=== PATIENT | female | born 1985 | race Caucasian/White ===

== ENCOUNTER 2016-11-20 11:24 | Emergency (ER) | payer OTHER ==
[2016-11-20 11:29] VITALS: TEMP 98.4; BMI 27.4
--- NOTE | 2016-11-20 11:52 | PDOC ---
History of Present Illness - General History Source: Patient, Old Records Exam Limitations: No Limitations <Yessenia Brito - Last Filed: 11/20/16 16:38> - General History Source: Patient Exam Limitations: No Limitations - History of Present Illness Initial Comments: 11/20/16 11:57 The patient is a 31-year-old woman with a significant past medical history of migraine headaches and post depression (gave approximately 17 months ago; LMP was on 10/28) who presents to the emergency department for further evaluation via EMS for further evaluation of shortness of breath. Patient states that she was at urgent care this morning for a sore throat She was diagnosed with strep throat and she proceeded to go to her sons hypnotherapist to rule out strep throat. She arrived at her destination, when she suddenly felt suprapubic pain with associated nausea, vomiting and shortness of breath and shakiness. She states that it is hard for her to catch her breath. She notes that when she attempts to catch her breath, her lower abdomen exacerbates her shortness of breath. She states that she felt to shaky to get out of the car, thus she was helped by her and presents to the emergency department for further evaluation. Upon ER arrival, patient was noted to have a temperature of 100.1 and to have an oxygen saturation of 100% on room air. She reports having similar symptoms when she found out she was allergic to codeine. No new foods/ medications. No speech difficulty. No chest pain, lightheadedness, dizziness, palpitations, neck pain, neck stiffness, visual changes, headaches. No urinary complaints. Allergies: Codeine Past Surgical History: None reported Social History: She smokes 1 cigarette/day (at night). No ETOH use and recreational drug use. <MelissaAugustina - Last Filed: 11/20/16 17:00> - General Chief Complaint: Pain Stated Complaint: NUMBNESS TO EXTREMITIES Time Seen by Provider: 11/20/16 11:41 Past History - Past Medical History Asthma: Yes Cancer: No Cardiac Disorders: No Diabetes: No HTN: No Seizures: No Thyroid Disease: No - Psycho/Social/Smoking Cessation Hx Suicidal Ideation: No Smoking History: Never smoked Have you smoked in the past 12 months: No Information on smoking cessation initiated: No Hx Alcohol Use: No Drug/Substance Use Hx: No Substance Use Type: None Hx Substance Use Treatment: No <Yessenia Brito - Last Filed: 11/20/16 16:38> <Augustina Torres - Last Filed: 11/20/16 17:00> - Past Medical History Allergies/Adverse Reactions: Allergies Allergy/AdvReac Type Severity Reaction Status Date / Time codeine Allergy Verified 11/20/16 11:29 Home Medications: Ambulatory Orders Paroxetine HCl [Paxil] 20 mg PO DAILY 11/20/16 Review of Systems - Review of Systems Able to Perform ROS?: Yes Comments:: 11/20/16 11:57 CONSTITUTIONAL: Present: Fever. Chills. Absent: diaphoresis, generalized weakness, malaise, loss of appetite HEENT: Absent: rhinorrhea, nasal congestion, throat pain, throat swelling, difficulty swallowing, mouth swelling, ear pain, eye pain, visual Changes CARDIOVASCULAR: Absent: chest pain, syncope, palpitations, irregular heart rate , lightheadedness, peripheral edema RESPIRATORY: Present: Shortness of Breath. Absent: cough, dyspnea with exertion , orthopnea, wheezing, stridor, hemoptysis GASTROINTESTINAL: Present: Abdominal Pain. Nausea. Vomiting. Absent: abdominal distension, diarrhea, constipation, melena, hematochezia GENITOURINARY: Absent: dysuria, frequency, urgency, hesitancy, hematuria, flank pain, genital pain MUSCULOSKELETAL: Absent: myalgia, arthralgia, joint swelling SKIN: Absent: rash, itching, pallor HEMATOLOGIC/IMMUNOLOGIC: Absent: easy bleeding, easy bruising, lymphadenopathy, frequent infections ENDOCRINE:Absent: unexplained weight gain, unexplained weight loss, heat intolerance, cold intolerance NEUROLOGIC: Absent: headache, focal weakness or paresthesias, dizziness, unsteady gait, seizure, mental status changes, bladder or bowel incontinence PSYCHIATRIC: Absent: anxiety, depression, suicidal or homicidal ideation, hallucinations <Augustina Torres - Last Filed: 11/20/16 17:00> *Physical Exam - Vital Signs Last Vital Signs Temp Pulse Resp BP Pulse Ox 98.4 F 117 H 18 143/86 100 11/20/16 11:28 11/20/16 11:28 11/20/16 11:28 11/20/16 11:28 11/20/16 11:28 <Yessenia Brito - Last Filed: 11/20/16 16:38> - Vital Signs Last Vital Signs Temp Pulse Resp BP Pulse Ox 98.4 F 117 H 18 143/86 100 11/20/16 11:28 11/20/16 11:28 11/20/16 11:28 11/20/16 11:28 11/20/16 11:28 - Physical Exam Comments: 11/20/16 11:57 GENERAL: Well developed, well nourished. Awake and alert. No acute distress. HEENT: Normocephalic, atraumatic. PERRLA, EOMI. No conjunctival pallor. Sclera are non-icteric. Moist mucous membranes. +2 tonsilar edema with tonsilar exudates. NECK: Supple. Full ROM. No JVD. CARDIOVASCULAR: Regular rate and rhythm. No murmurs, rubs, or gallops. PULMONARY: No evidence of respiratory distress. Lungs clear to auscultation bilaterally. No wheezing, rales or rhonchi. ABDOMINAL: Soft. Thee is some suprapubic discomofrt to palpation. Non- distended. No rebound or guarding. No organomegaly. Normoactive bowel sounds. MUSCULOSKELETAL: Normal range of motion at all joints. No bony deformities or tenderness. No CVA tenderness. EXTREMITIES: No cyanosis. No clubbing. No edema. No calf tenderness. SKIN: Warm and dry. Normal capillary refill. No rashes. No jaundice. NEUROLOGICAL: Alert, awake, appropriate. Cranial nerves 2-12 intact. Normal speech. PSYCHIATRIC: Cooperative. Good eye contact. Appropriate mood and affect. <Augustina Torres - Last Filed: 11/20/16 17:00> ED Treatment Course - LABORATORY CBC & Chemistry Diagram: 11/20/16 12:30 11/20/16 12:30 <Yessenia Brito - Last Filed: 11/20/16 16:38> - LABORATORY CBC & Chemistry Diagram: 11/20/16 12:30 11/20/16 12:30 <Augustina Torres - Last Filed: 11/20/16 17:00> Medical Decision Making - Medical Decision Making 11/20/16 12:23 31-year-old female with history of depression presents the emergency Department with complaints of shortness of breath and abdominal pain; the patient was just diagnosed with strep pharyngitis. She is febrile and tachycardicDifferential diagnosis includes but is not limited to: URI, PNA, UTI , , gastroenteritis, dehydration, electrolyte abnormality, toxic/ metabolic derangement. Plan: 1. Labs 2. Ibuprofen for fever 3. Urine analysis and urine 4. Observe and reevaluate 11/20/16 16:38 Addendum: The labs were reviewed and are noted in the electronic medical record. The d-dimer was elevated therefore a CAT scan of the chest with contrast was performed to rule out PE. This study was negative. I reevaluated the patient at this time and she is feeling improved. She has complete resolution of all of her symptoms including abdominal pain. The plan is to discharge the patient home. Follow-up with primary care physician within one week and return to the emergency department if her symptoms persist, worsen, or new symptoms arise. <Yessenia Brito - Last Filed: 11/20/16 16:38> *DC/Admit/Observation/Transfer - Discharge Dispostion Admit: No - Attestations Physician Attestion: 11/20/16 12:26 I, Dr. Yessenia Brito, attest that the scribes documentation that appears above has been prepared under my direction and personally reviewed by me in its entirety. I confirmed that the note above accurately reflects all work, treatment, procedures, and medical decision-making performed by me. <Yessenia Brito - Last Filed: 11/20/16 16:38> - Attestations Scribe Attestion: 11/20/16 12:00 Documentation prepared by Augustina Torres, acting as medical secretary teacher for Yessenia Brito MD. <Augustina Torres - Last Filed: 11/20/16 17:00> Diagnosis at time of Disposition: Fever, Shortness of breath - Discharge Dispostion Disposition: HOME Condition at time of disposition: Stable - Patient Instructions Printed Discharge Instructions: DI for Shortness of Breath Additional Instructions: Workup for shortness of breath was negative. You had a CT scan of your chest that was negative for pulmonary embolism/blood clot. Please continue treatment for strep pharyngitis. You may take acetaminophen or ibuprofen as needed for throat pain or fever. Please follow-up with your primary care physician and return to the emergency department if your symptoms persist, worsen, or new symptoms arise.
[2016-11-20] MEDS ORDERED: IBUPROFEN 400 MG TABLET (FP) PO ONE ×2 (11:53→12:32)
[2016-11-20] MEDS ORDERED: SODIUM CHLORIDE 1,000 ML IV STA (11:53)
[2016-11-20 12:43] LABS: BASOPHIL 0.6 % (0-2.0); MCH 28.4 pg (25.7-33.7); MCHC 33.1 g/dl (32.0-36.0); MEAN CELL VOLUME 85.8 fl (80-96); MEAN PLT VOLUME 8.3 fl (7.5-11.1); NEUTROPHILS 82.9 % (42.8-82.8); PLATELET COUNT 213 K/MM3 (134-434); RDW 13.5 % (11.6-15.6); WHITE BLOOD COUNT 13.4 K/mm3 (4.0-10.0)
[2016-11-20 13:14] LABS: ANION GAP 18 (8-16); BILIRUBIN,TOTAL 1.1 mg/dL (0.2-1.0); CALCIUM 8.9 mg/dL (8.5-10.1); CO2 19 mmol/L (21-32); COCKROFT - GAULT 114.5885; CREATININE 0.8 mg/dL (0.55-1.02); GLUCOSE,RANDOM 73 mg/dL (74-106); SGOT/AST 24 U/L (15-37); SGPT/ALT 27 U/L (12-78); TOT PROT 7.5 g/dl (6.4-8.2)
[2016-11-20 13:15] LABS: ALK PHOS 76 U/L (45-117)
--- NOTE | 2016-11-20 14:16 | EKG ---
Test Reason : Blood Pressure : / mmHG Vent. Rate : 111 BPM Atrial Rate : 111 BPM P-R Int : 156 ms QRS Dur : 076 ms QT Int : 342 ms P-R-T Axes : 068 091 069 degrees QTc Int : 465 ms SINUS TACHYCARDIA POSSIBLE LEFT ATRIAL ENLARGEMENT RIGHTWARD AXIS BORDERLINE ECG WHEN COMPARED WITH ECG OF 01-FEB-2009 08:31, NO SIGNIFICANT CHANGE WAS FOUND Confirmed by TRISTIAN BURTON MD ([id number]) on 11/20/2016 2:15:30 PM Referred By: Confirmed By:TRISTIAN BURTON MD
[2016-11-20 14:36] LABS: URINE APPEARANCE CLEAR; URINE BILIRUBIN NEGATIVE (NEGATIVE); URINE BLOOD NEGATIVE (NEGATIVE); URINE COLOR LTYELLOW; URINE GLUCOSE (UA) NEGATIVE (NEGATIVE); URINE KETONE 2+ (NEGATIVE); URINE LEUK ESTERASE NEGATIVE (NEGATIVE); URINE NITRITE NEGATIVE (NEGATIVE); URINE PROTEIN NEGATIVE (NEGATIVE); URINE UROBILINOGEN NEGATIVE E.U./dl (0.2-1.0)
[2016-11-20 16:58] VITALS: BP 101/60; PULSE 90
== END 2016-11-20 16:59 | disposition home or self-care (01) ==
LOC: JER 11:24
PROC: 3E0337Z Introduction of Electrolytic and Water Balance Substance into Peripheral Vein, Percutaneous Approach (ICD-10-PCS; principal; 2016-11-20)
DX: R50.9 Fever, unspecified (principal); R06.02 Shortness of breath
CPT/HCPCS: 36415; 71275-TC; 80053; 81003; 83690; 84703; 85025; 85379; 93005; 93010; 99284-25